=== PATIENT | male | born 1985 | race Caucasian/White ===

== ENCOUNTER 2019-01-13 13:57 | Emergency (ER) | payer OTHER, MEDICAID, SELFPAY ==
[2019-01-13 14:03] VITALS: BP 117/71; PULSE 65; RESP 20; O2SAT 100
--- NOTE | 2019-01-13 14:11 | DI.RAD.S_ITS ---
PROCEDURE: XR CHEST 1V INDICATIONS: chest pain TECHNIQUE: One view of the chest was acquired. COMPARISON: None. FINDINGS: Surgical changes and devices: None. Lungs and pleura: Lungs are clear. No pleural effusions or pneumothorax. Mediastinum: Mediastinal contours appear normal. Heart size is normal. Bones and chest wall: No suspicious bony lesions. Overlying soft tissues appear unremarkable. IMPRESSION: Normal for age, source of current chest pain is not seen. Dictated by: Adan Burgos M.D. on 01/13/2019 at 13:34 Approved by: Adan Burgos M.D. on 01/13/2019 at 13:36
[2019-01-13 15:00] LABS: Add Manual Diff / Slide Review NO; Basophils Absolute Auto 0 /uL (0-100); Basophils Percent Auto 0.3 % (0-2); Eosinophils Absolute Auto 0 /uL (0-450); Eosinophils Percent Auto 0.1 % (2-4); Hematocrit 37.8 % (41-53); Hemoglobin 12.8 g/dL (13.5-17.5); Lymphocytes Absolute Auto 1300 /uL (1100-4500); Lymphocytes Percent Auto 10.1 % (25-40); Mean Corpuscular HGB Conc 33.8 % (30-36); Mean Corpuscular Hemoglobin 29.3 PG (26-34); Mean Corpuscular Volume 86.8 fL (80-100); Monocytes Absolute Auto 600 /uL (0-900); Monocytes Percent Auto 4.6 % (3-14); Neutrophils Absolute Auto 10800 /uL (1500-7000); Neutrophils Percent Auto 84.9 % (50-75); Platelet Count 244 X10^3/uL (150-400); Red Blood Cell Count 4.35 X10^6/uL (4.5-5.9); Red Cell Distribution Width 13.5 % (11.6-14.8); White Blood Cell Count 12.8 X10^3/uL (4.5-11.0)
[2019-01-13 15:04] LABS: INR 1.1 (0.9-1.3); Prothrombin Time 12.8 SECONDS (10.1-12.7)
[2019-01-13 15:07] LABS: PTT Partial Thromboplastin Tim 27 SECONDS (26.4-36.2)
[2019-01-13 15:09] LABS: Alanine Aminotransferase 60 IU/L (21-72); Albumin 4.7 g/dL (3.5-5.0); Albumin Globulin Ratio 1.4 (1.0-2.8); Alkaline Phosphatase 68 U/L (38-126); Aspartate Aminotransferase 42 IU/L (17-59); BUN Creatinine Ratio 26.3 (6-22); Blood Urea Nitrogen 21 mg/dL (9-20); Calcium 9.7 mg/dL (8.4-10.2); Carbon Dioxide 24 mmol/L (22-32); Chloride 102 mmol/L (98-107); Creatine Kinase 212 U/L (55-170); Estimated Glomerular Filt Rate > 60.0 mL/min (>60); Globulin 3.4 g/dL (1.7-4.1); Glucose 99 mg/dL (70-100); HEMOLYSIS < 15 (0-50); Lipase 39 U/L (23-300); Potassium 4.3 mmol/L (3.4-5.1); Sodium 137 mmol/L (137-145); Total Protein 8.1 g/dL (6.3-8.2)
[2019-01-13] MEDS: ASPIRIN 81 MG TAB 324 MG PO (15:15)
[2019-01-13 15:20] LABS: Troponin I < 0.012 ng/mL (0.01-0.034)
[2019-01-13 15:24] LABS: CKMB % Relative Index 0.8 % (1.5-5.0); Creatine Kinase MB 1.67 ng/mL (<2.37)
--- NOTE | 2019-01-13 16:52 | ED.CHESTPAIN ---
HPI - Chest Pain General Chief Complaint: Chest Pain Stated Complaint: chest pain/nausea x30 minutes Time Seen by Provider: 01/13/19 16:52 Source: patient Mode of arrival: ambulatory Limitations: no limitations History of Present Illness HPI narrative: 33-year-old male comes emergency department with complaint of chest pain. Patient states that he work about 130 today. He had chest pain, had headache felt very sweaty started throwing up. Sort of felt numb. Patient states he that he felt like he passed out. He is not sure for how long. He works [employer] he was raking when this occurred. He feels better now. Patient denies any past medical history other than taking Suboxone, he does use methamphetamines he states his last use was yesterday he denies any today. He denies any IV drug use or cocaine. Patient denies any surgeries other than a finger surgery and shoulder surgery remotely. Denies any allergies to medications. His mom had history of congestive heart failure and COPD starting around age 54 she is now 57, he does not know his father's history. Not aware of any siblings with cardiac history. He has been told multiple times his blood pressure was quite high at the Sub[facility]one clinic up into the 200 range. He does not have a PCP but has been calling around for one. He is denying any alcohol use. Related Data Home Medications Medication Instructions Recorded Confirmed buprenorphine-naloxone 2.5 film SUBLINGUAL DAILY 01/13/19 01/13/19 Allergies Allergy/AdvReac Type Severity Reaction Status Date / Time No Known Allergies Allergy Uncoded 11/26/17 12:10 Review of Systems Review of Systems ROS Unobtainable: All systems reviewed & are unremarkable except as noted in HPI and below Constitutional Reports excessive sweating, Reports fatigue (feels wiped out.) and Reports headache(s) (resolved.) Eyes Denies change in vision ENT Ears, Nose, Mouth, and Throat: Reports headache(s) (resolved.) Cardiovascular Reports chest pain (resolved now.), Reports diaphoresis, Reports syncope, Denies radiating jaw, neck or arm pain, Denies palpitations, Denies dyspnea and Denies dyspnea on exertion Respiratory Denies chest congestion, Denies cough, Denies excessive phlegm production, Denies dyspnea, Denies dyspnea on exertion and Denies wheezing Gastrointestinal Gastrointestinal: Denies abdominal pain, Denies melena, Denies hematochezia, Denies change in bowel habits, Denies diarrhea, Reports nausea (resolved.) and Reports vomiting (resolved) Genitourinary Denies hematuria, Denies flank pain, Denies urinary frequency and Denies urinary urgency Integumentary/Breasts Denies rash Neurologic Reports syncope and Reports headache(s) (resolved.) Endocrine Reports excessive sweating, Reports fatigue (feels wiped out.) and Denies palpitations Allergic/Immunologic Denies wheezing PFSH Family History (Updated 01/13/19 @ 17:16 by Kaitlin Snell DO) Mother Congestive heart failure COPD (chronic obstructive pulmonary disease) Social History substance use type: amphetamines Exam Narrative Exam Narrative: GENERAL: Alert and oriented x three, thin male in no acute distress. HEENT: Head normocephalic, atraumatic, EOMI, pupils reactive, face symmetric, moist mucous membranes NECK: Supple, full range of motion CARDIOVASCULAR: Regular rate and rhythm without murmurs, rubs or gallops. RESPIRATORY: Breath sounds equal bilaterally, no wheezes rales or rhonchi. Patient has mild dry cough on exam. No tachypnea or accessory muscle use. ABDOMEN: Soft, nontender. Normoactive bowel sounds all 4 quadrants. No guarding or rebound, rigidity, no mass : No CVA tenderness EXTREMITIES: Normal range of motion, no clubbing or edema. Neurovascularly intact NEUROLOGICAL: Cranial nerves II through XII grossly intact. Moving all extremities SKIN: Warm, dry, no petechiae, patient has multiple scabs and skin changes consistent with skin picking. Initial Vital Signs Initial Vital Signs: Vital Signs Pulse Rate 65 01/13/19 14:03 Respiratory Rate 20 01/13/19 14:03 Blood Pressure 117/71 01/13/19 14:03 Pulse Oximetry 100 01/13/19 14:03 Scores HEART Score Heart Score history: Slightly Suspicious Heart Score EKG: Non-Specific repolarization disturbance Heart Score Age: < 45 years old Heart Score risk factors: 1-2 risk factors Heart Score troponin: < or = to normal limit Heart Score Total: 2 Course Orders Ordered: ED Orders 01/13/19 14:11 XR chest 1V Stat EKG-12 Lead Stat 01/13/19 14:50 Complete Blood Count AUTO DIFF Stat Comprehensive Metabolic Panel Stat Lipase Stat Partial Thromboplastin Time Stat Prothrombin Time INR Stat Troponin & CK Cardiac Panel Stat 01/13/19 17:10 Troponin & CK Cardiac Panel Stat EKG-12 Lead Stat Discontinued Medications Aspirin (Aspirin Chew) 324 mg PO NOW ONE Stop: 01/13/19 14:12 Last Admin: 01/13/19 15:15 Dose: 324 mg Vital Signs - 8 hr 01/13/19 14:03 01/13/19 18:29 Pulse Rate 65 79 Respiratory Rate 20 20 Blood Pressure 117/71 109/59 L Pulse Oximetry 100 100 MDM - Chest Pain Lab Data Attestation: I reviewed the patient's lab results. Result diagrams: 01/13/19 14:50 01/13/19 14:50 Lab Results 01/13/19 01/13/19 01/13/19 Range/Units 14:50 14:50 14:50 WBC 12.8 H (4.5-11.0) X10^3/uL RBC 4.35 L (4.5-5.9) X10^6/uL Hgb 12.8 L (13.5-17.5) g/dL Hct 37.8 L (41-53) % MCV 86.8 (80-100) fL MCH 29.3 (26-34) PG MCHC 33.8 (30-36) % RDW 13.5 (11.6-14.8) % Plt Count 244 (150-400) X10^3/uL Neut % (Auto) 84.9 H (50-75) % Lymph % (Auto) 10.1 L (25-40) % Sargent % (Auto) 4.6 (3-14) % Eos % (Auto) 0.1 L (2-4) % Baso % (Auto) 0.3 (0-2) % Neut # (Auto) 80081 H (3562-6645) /uL Lymph # (Auto) 1300 (4858-7069) /uL Sargent # (Auto) 600 (0-900) /uL Eos # (Auto) 0 (0-450) /uL Baso # (Auto) 0 (0-100) /uL PT 12.8 H (10.1-12.7) SECONDS INR 1.1 (0.9-1.3) APTT 27 (26.4-36.2) SECONDS Sodium 137 (137-145) mmol/L Potassium 4.3 (3.4-5.1) mmol/L Chloride 102 (98-107) mmol/L Carbon Dioxide 24 (22-32) mmol/L BUN 21 H (9-20) mg/dL Creatinine 0.80 (0.66-1.25) mg/dL Estimated GFR > 60.0 (>60) mL/min BUN/Creatinine Ratio 26.3 H (6-22) Glucose 99 (70-100) mg/dL Calcium 9.7 (8.4-10.2) mg/dL Total Bilirubin 1.0 (0.2-1.3) mg/dL AST 42 (17-59) IU/L ALT 60 (21-72) IU/L Alkaline Phosphatase 68 (38-126) U/L Total Creatine Kinase 212 H (55-170) U/L CK-MB (CK-2) 1.67 (<2.37) ng/mL CK-MB (CK-2) Rel Index 0.8 L (1.5-5.0) % Troponin I < 0.012 (0.01-0.034) ng/mL Total Protein 8.1 (6.3-8.2) g/dL Albumin 4.7 (3.5-5.0) g/dL Globulin 3.4 (1.7-4.1) g/dL Albumin/Globulin Ratio 1.4 (1.0-2.8) Lipase 39 (23-300) U/L // Range/Units 17:10 WBC (4.5-11.0) X10^3/uL RBC (4.5-5.9) X10^6/uL Hgb (13.5-17.5) g/dL Hct (41-53) % MCV (80-100) fL MCH (26-34) PG MCHC (30-36) % RDW (11.6-14.8) % Plt Count (150-400) X10^3/uL Neut % (Auto) (50-75) % Lymph % (Auto) (25-40) % Sargent % (Auto) (3-14) % Eos % (Auto) (2-4) % Baso % (Auto) (0-2) % Neut # (Auto) (1966-2666) /uL Lymph # (Auto) (4849-8977) /uL Sargent # (Auto) (0-900) /uL Eos # (Auto) (0-450) /uL Baso # (Auto) (0-100) /uL PT (10.1-12.7) SECONDS INR (0.9-1.3) APTT (26.4-36.2) SECONDS Sodium (137-145) mmol/L Potassium (3.4-5.1) mmol/L Chloride (98-107) mmol/L Carbon Dioxide (22-32) mmol/L BUN (9-20) mg/dL Creatinine (0.66-1.25) mg/dL Estimated GFR (>60) mL/min BUN/Creatinine Ratio (6-22) Glucose (70-100) mg/dL Calcium (8.4-10.2) mg/dL Total Bilirubin (0.2-1.3) mg/dL AST (17-59) IU/L ALT (21-72) IU/L Alkaline Phosphatase (38-126) U/L Total Creatine Kinase 187 H (55-170) U/L CK-MB (CK-2) 1.60 (<2.37) ng/mL CK-MB (CK-2) Rel Index 0.9 L (1.5-5.0) % Troponin I < 0.012 (0.01-0.034) ng/mL Total Protein (6.3-8.2) g/dL Albumin (3.5-5.0) g/dL Globulin (1.7-4.1) g/dL Albumin/Globulin Ratio (1.0-2.8) Lipase (23-300) U/L Imaging Data Chest x-ray: Attestation: I personally reviewed and interpreted this imaging study as follows: Radiologist's impression: Timothy Lamacelestina Silva 33 M [address] [address] XRay Report Signed Patient: Jayce Lama [facility]#: [id number] : 1985Acct:[id number] Age/Sex: 33 / MDate of Service: 01/13/19 Loc: ED Accession Number: [id number] Procedure: XR chest 1V Ordering Provider: Kaitlin Snell D.O. PROCEDURE: XR CHEST 1V INDICATIONS: chest pain TECHNIQUE: One view of the chest was acquired. COMPARISON: None. FINDINGS: Surgical changes and devices: None. Lungs and pleura: Lungs are clear. No pleural effusions or pneumothorax. Mediastinum: Mediastinal contours appear normal. Heart size is normal. Bones and chest wall: No suspicious bony lesions. Overlying soft tissues appear unremarkable. IMPRESSION: Normal for age, source of current chest pain is not seen. Dictated by: Adan Burogs M.D. on 01/13/2019 at 13:34 Approved by: Adan Burgos M.D. on 01/13/2019 at 13:36 ECG Data Attestation: I personally reviewed and interpreted this ECG as follows: Prior ECG tracings: not available for review Interpretation: Sinus bradycardia rate of 51 P are 188 QRS 110 QTC of 449 likely LVH. No clear J-point elevation. EKG 2. Shows sinus rhythm with rate of 62 P are 152 QRS of 105 and QTC 421. Possible LVH. Appears similar to first. EKG#3, sinus rhythm rate of 73 P are 188 QRS of 102 and QTC of 426. No new changes, EKG appears similar to priors from today. MDM Narrative Medical decision making narrative: Patient had possible syncopal episode although by his description may or may not have been true syncope. He was diaphoretic he did have chest pain including headache. Patient states symptoms have resolved any just feels sort of worn out now. He does not headache any longer. Patient was raking when he did this. He does use methamphetamines he is denying any cocaine or IV drug use. Patient's EKG appears to likely be LVH. EKG appears similar on all 3, troponin x2 is negative. Plan for DC home follow up with primary care, was given referral numbers he does not have his own PCP. He was not hypertensive during his stay so was not started any medications. Discharge Plan Departure Patient Disposition: Home Clinical Impression: Atypical chest pain Discharge Date/Time: 01/13/19 18:30 Interventions: ED Discharge Assessment Last Done: 01/13/19 18:29 Instructions: DI for Atypical Chest Pain Activity Restrictions/Additional Instructions: Follow-up with primary care in the next week. Call [phone] for options for primary care referral if you are having trouble finding a physician. Discussed with physicians about being evaluated for hypertension. Would recommend not using any street drugs, including methamphetamines. Return to the emergency department for fevers greater 100.4 F, passing out, new chest pain, new shortness of breath, persistent vomiting, black or bloody stools. Coughing up blood, swelling of your extremities, new rashes or other new or concerning symptoms. Prescriptions: No Action buprenorphine-naloxone 8-2 mg film 2.5 film Sublingual DAILY RF: 0
[2019-01-13 17:29] LABS: Creatine Kinase 187 U/L (55-170)
[2019-01-13 17:42] LABS: Troponin I < 0.012 ng/mL (0.01-0.034)
[2019-01-13 17:44] LABS: CKMB % Relative Index 0.9 % (1.5-5.0)
[2019-01-13 18:29] VITALS: BP 109/59; PULSE 79; RESP 20; O2SAT 100
== END 2019-01-13 18:30 | disposition home or self-care (01) ==
PROVIDERS: Emergency Provider Emergency Medicine
DX: R07.89 Other chest pain (principal); R11.2 Nausea with vomiting, unspecified; R51 Headache; R61 Generalized hyperhidrosis; R53.83 Other fatigue; R55 Syncope and collapse
CPT/HCPCS: 36415; 71045; 80053; 82550; 82553; 83690; 84484; 85025; 85610; 85730; 93005; 99283; 99285

== ENCOUNTER 2024-08-16 06:01 | Emergency (ER) | payer SELFPAY ==
[2024-08-16 06:01] VITALS: BP 159/95; PULSE 108; RESP 13; TEMP 36.8; O2SAT 99; BMI 22.3
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
--- NOTE | 2024-08-16 18:31 | CM.SWNOTE ---
ED THERMOSPRAY OPERATOR Follow up Note: Patient is a 39yo M, resident of [place], presented to the ED requesting clearance to return to work after work related injury. ED THERMOSPRAY OPERATOR consulted to provide resources to pt due to meth use. ED THERMOSPRAY OPERATOR called phone number on file (#[phone]), a worker at a local bike shop answered and stated there is no Jayce there. Both emergency contact and patient have this number recorded on EMR. ED THERMOSPRAY OPERATOR available if pt returns requesting information for [facility] resources. Corazon Diggs, CLINIC SPECIALIST
== END 2024-08-16 06:30 | disposition home or self-care (01) ==
PROVIDERS: Emergency Provider Emergency Medicine
DX: Z02.89 Encounter for other administrative examinations (principal)
CPT/HCPCS: 99281